=== PATIENT | female | born 1990 | race African-American/Black ===

== ENCOUNTER → 2020-11-24 | Outpatient (CLI) | payer BC, OTHER ==
[2020-08-16 15:30] VITALS: BP 127/72
--- NOTE | 2020-11-24 16:52 | RAD ---
EXAM: OBSTETRIC ULTRASOUND. HISTORY: Size/date discrepancy. COMPARISON: None. FINDINGS: Sonographic evaluation of the uterus, fetus and maternal pelvis was performed. There is a single fetus in vertex presentation. heart rate is 144 bpm. Estimated gestational ag e based on measurements is 20 weeks 4 days. Head circumference, biparietal diameter, abdominal circum ference and femur length are commensurate. Estimated weight is 364 g. The placenta is anterior. There is no evidence of placenta previa. Amniotic fluid volume appears norm al with amniotic fluid index 10.5 cm. The cervix is closed and measures 4.5 cm. The cord is three-vessel. The stomach and bladder are visualized. Images of the spine reveal no clear defects. There is no hydrocephalus. The choroid plexus appears normal. The posterior fossa appears n ormal. The cord insertion appears normal. The profile appears normal. The heart, left and right ventr icular outflow tracts are not well demonstrated on static images appear normal on real-time scanning. Images of the kidneys reveal no hydronephrosis. Nose/lip morphology appears normal. The maternal adnexa are obscured by positioning currently. IMPRESSION: 1. Single fetus in vertex presentation. heart rate 144 bpm. Estimated gestational age based on measurements 20 weeks 4 days. Electronically signed by: Claudio Hunter MD (11/24/2020 4:49 PM) [id number]
== END ==
LOC: US 15:16
PROVIDERS: ATTEND Obstetrics & Gynecology
DX: O26.842 Uterine size-date discrepancy, second trimester (principal); Z3A.20 20 weeks gestation of pregnancy
CPT/HCPCS: 76805